=== PATIENT | male | born 1995 | race Caucasian/White ===

== ENCOUNTER 2017-09-13 21:34 | Emergency (ER) | payer OTHER ==
[2017-09-13 21:36] VITALS: BP 138/73; TEMP 98.2
[2017-09-13] MEDS ORDERED: MELATONIN5 M1 SL (21:40)
[2017-09-13 22:49] VITALS: PULSE 75
== END 2017-09-13 22:49 | disposition home or self-care (01) ==
LOC: COL.ER 21:34 → EDBD 21:35 → COL.ER 22:49
DX: S93.402A Sprain of unspecified ligament of left ankle, initial encounter (principal); W17.89XA Other fall from one level to another, initial encounter; Y92.89 Other specified places as the place of occurrence of the external cause